=== PATIENT | female | born 2000 | race Caucasian/White ===

== ENCOUNTER 2020-12-02 16:24 | Emergency (ER) | payer OTHER ==
[2020-12-02 17:42] LABS: #Lymphocytes 0.9 thou/uL (1.20-3.40); #Monocytes 0.3 thou/uL (0.11-0.59); #Neutrophils 3.5 thou/uL (1.40-6.50); %Basophils 0.6 % (0.0-1.0); %Eosinophils 0.3 % (0.0-10.0); %Lymphocytes 19.2 % (21.0-51.0); %Monocytes 5.5 % (0.0-10.0); %Neutrophils 74.4 % (42.0-75.0); Hemoglobin 15.2 g/dL (12.0-16.0); Mean Corpuscular HGB CONC 32.1 g/dL (32.0-36.0); Mean Corpuscular Volume 90.4 fL (78.0-98.0); Mean Platelet Volume 7.1 fL (7.4-10.4); Platelet Count 215 thou/uL (130-400); RBC Distribution Width 11.4 % (11.5-14.5); Red Blood Cell (RBC) Count 5.26 mill/uL (4.20-5.40); White Blood Cell (WBC) Count 4.7 thou/uL (4.8-10.8)
[2020-12-02 17:55] LABS: BHCG - Serum Negative (NEGATIVE); Pregs Control Background? CLEAR/WHITE (CLR/WHITE); Pregs Control Bar Appear? YES (CONTROL BAR)
[2020-12-02] MEDS ORDERED: Acetaminophen 500 MG TAB ONE (17:56)
[2020-12-02 18:04] LABS: ALT (SGPT) 24 U/L (8-55); AST (SGOT) 24 U/L (5-34); Albumin 4.5 g/dL (3.5-5.0); Alkaline Phosphatase 72 U/L (40-110); Anion Gap 15 mmol/L (10-20); BUN (Urea Nitrogen) 9 mg/dL (7.0-18.7); Bilirubin, Total 0.4 mg/dL (0.2-1.2); Calc. Creatinine Clearance 0 mL/min (70-130); Carbon Dioxide 28 mmol/L (22-29); Chloride 100 mmol/L (98-107); Globulin 3.6 g/dL (2.4-3.5); Glucose 90 mg/dL (70-105); Potassium 3.7 mmol/L (3.5-5.1); Protein, Total 8.1 g/dL (6.0-8.3); Sodium 139 mmol/L (136-145)
[2020-12-02 18:34] LABS: Bilirubin Negative (Negative); Blood, Urine Negative (Negative); Clarity Clear (Clear); Glucose, Urine (Dipstick) Normal (Negative); Ketone, Urine Negative (Negative); Leukocyte Negative Leu/uL (Negative); Nitrite Negative (Negative); Protein, Urine (Dipstick) Negative (Neg-Trace); Specific Gravity, Urine 1.005 (1.002-1.036); Urobilinogen Normal mg/dL (Less than 2)
--- NOTE | 2020-12-02 18:47 | RAD ---
EXAM: CHEST ONE VIEW HISTORY: Covid exposure. Fever, malaise, and shortness of breath. Headache. COMPARISON: None FINDINGS: The cardiac silhouette and pulmonary vasculature are within normal limits. There are linear and patch y parenchymal opacities in the right suprahilar location and in the region of the lingula with slight hazy patchy opacity at the right lung base. Findings are likely attributable to viral pneumoni tis related to Covid 19. No pleural effusion is seen. The osseous structures are intact. IMPRESSION: Covid pneumonia.
[2020-12-03 04:28] LABS: SARS-CoV-2 MS2 Positive; SARS-CoV-2 N Gene Negative; SARS-CoV-2 S Gene Negative; SARS-CoV-2 by NAA Not Detected (NotDetected); SARS-CoV-2 orf1ab Negative
== END 2020-12-02 20:04 | disposition home or self-care (01) ==
LOC: ERS 16:24
DX: J18.9 Pneumonia, unspecified organism (principal)
CPT/HCPCS: 36416; 71045; 80053; 81003; 83605; 84703; 85025; 87040; 87086; 87635; 87804; 94760; U0003

== ENCOUNTER 2021-06-05 08:44 | Outpatient (CLI) | payer OTHER | END 2021-06-05 08:45 | disposition home or self-care (01) | LOC: SCSRAD 08:44 | PROVIDERS: ATTEND Chiropractor | DX: M54.5 Low back pain (principal) | CPT/HCPCS: 72100 ==